=== PATIENT | male | born 1960 | race Caucasian/White ===

== ENCOUNTER 2024-04-27 18:08 | Emergency (ER) | payer OTHER ==
[~2024-04-27] VITALS: Ht 180.3 cm; Wt 85.0 kg
[2024-04-27 18:09] VITALS: BP 163/91; PULSE 77; RESP 18; TEMP 37.1; O2SAT 99
[2024-04-27 21:03] VITALS: TEMP 98.8
[2024-04-27] MEDS: ACETAMINOPHEN 325MG TABLET PO ONE (21:03)
[2024-04-28] MEDS ORDERED: IBUP-1523 MT (01:48)
[2024-04-28] MEDS ORDERED: TOPUD MT (01:48)
[2024-04-28] MEDS ORDERED: DICL500C MT (01:48)
== END 2024-04-28 01:55 | disposition home or self-care (01) ==
LOC: ER 18:08
DX: S02.40EA Zygomatic fracture, right side, initial encounter for closed fracture (principal); S02.40CA Maxillary fracture, right side, initial encounter for closed fracture; S00.81XA Abrasion of other part of head, initial encounter; S60.512A Abrasion of left hand, initial encounter; E11.9 Type 2 diabetes mellitus without complications; I10 Essential (primary) hypertension; W18.39XA Other fall on same level, initial encounter; Y93.89 Activity, other specified; Y92.89 Other specified places as the place of occurrence of the external cause; Y99.8 Other external cause status
CPT/HCPCS: 70486; 73130; 99284